=== PATIENT | male | born 1960 | race Caucasian/White ===

== ENCOUNTER 2021-11-04 23:49 | Emergency (ER) | payer OTHER ==
[2021-11-04 23:58] VITALS: BP 127/74; PULSE 76; TEMP 97.9; BMI 30.5
[2021-11-05] MEDS ORDERED: MAG HYDROX/AL HYDROX/SIMETH -MYLANTA- ORAL SUSPENSION PO ONE
[2021-11-05] MEDS ORDERED: MAG HYDROX/AL HYDROX/SIMETH 30 ML UNIT-DOSE CUP ONE (00:05)
[2021-11-05 01:57] LABS: BASO % 0.8 % (0-2.0); EOS % 6.3 % (0-4.5); HEMATOCRIT 40.7 % (35.4-49); HEMOGLOBIN 13.8 GM/dL (11.7-16.9); LYMPH % 37.4 % (8-40); MCH 31.5 pg (25.7-33.7); MEAN CELL VOLUME 92.5 fl (80-96); MEAN PLT VOLUME 8.5 fl (7.5-11.1); MONO % 8.2 % (3.8-10.2); NEUT % 47.3 % (42.8-82.8); PLATELET COUNT 173 10^3/uL (134-434); RBC 4.39 M/mm3 (4.00-5.60); RDW 13.4 % (11.9-15.9); WHITE BLOOD COUNT 6.4 K/mm3 (4.0-10.0)
[2021-11-05 02:12] LABS: ALBUMIN 3.9 g/dl (3.4-5.0); BLOOD UREA NITROGEN 25.9 mg/dL (7-18); CALCIUM 8.6 mg/dL (8.5-10.1)
[2021-11-05 02:15] LABS: CREATININE 0.7 mg/dL (0.55-1.3)
[2021-11-05 02:17] LABS: BILIRUBIN,TOTAL 0.3 mg/dL (0.2-1); TOT PROT 6.8 g/dl (6.4-8.2)
== END 2021-11-05 02:33 | disposition home or self-care (01) ==
LOC: FER 23:49
DX: R07.89 Other chest pain (principal); K46.9 Unspecified abdominal hernia without obstruction or gangrene
CPT/HCPCS: 36415; 80053; 82550; 82553; 84484; 85025; 93005; 99284-25

== ENCOUNTER 2023-04-09 00:03 | Emergency (ER) | payer OTHER ==
[2023-04-09] MEDS ORDERED: FAMOTIDINE 10 MG TABLET PO ONE (00:08)
[2023-04-09] MEDS ORDERED: diphenhydrAMINE HCL 25 MG CAPSULE (FP) PO ONE (00:08)
[2023-04-09 00:14] VITALS: BP 120/82; PULSE 66; RESP 16; TEMP 98; BMI 22.6
[2023-04-09] MEDS ORDERED: FAMOTIDINE 20 MG TABLET ONE (00:19)
[2023-04-09] MEDS ORDERED: FAMOTIDINE 20 MG TABLET PO ONE (00:20)
[2023-04-09] MEDS ORDERED: diphenhydrAMINE HCL 50 MG CAPSULE ONE (00:20)
== END 2023-04-09 00:24 | disposition home or self-care (01) ==
LOC: FER 00:03
DX: R21 Rash and other nonspecific skin eruption (principal); R50.9 Fever, unspecified
CPT/HCPCS: 99283-25